=== PATIENT | female | born 1985 | race Caucasian/White ===

== ENCOUNTER 2019-08-15 15:38 | Emergency (ER) | payer BC, MEDICAID ==
[~2019-08-15] VITALS: Ht 165.1 cm; Wt 135.3 kg
[~2019-08-15 15:38] MED LIST: DULO20CA50 PO; ESTR2TAB PO; HYDR-4070 PO; OXYC-150 PO
[2019-08-15 15:57] VITALS: BP 187/110
[2019-08-15] MEDS ORDERED: CEPH250T PO (16:18)
[2019-08-15] MEDS ORDERED: TETanus/Pertussis (Acell)/Diphther VAC/PF (Tdap-Adult) 0.5ml syringe IMVAC ONE (16:20)
== END 2019-08-15 16:44 | disposition home or self-care (01) ==
LOC: ER 15:38
DX: L08.9 Local infection of the skin and subcutaneous tissue, unspecified (principal); M79.605 Pain in left leg; J45.909 Unspecified asthma, uncomplicated; F41.9 Anxiety disorder, unspecified; Z90.49 Acquired absence of other specified parts of digestive tract; Z90.710 Acquired absence of both cervix and uterus; Z72.89 Other problems related to lifestyle; Z88.5 Allergy status to narcotic agent; Z79.2 Long term (current) use of antibiotics; Z79.899 Other long term (current) drug therapy
CPT/HCPCS: 90471; 90715; 99283

== ENCOUNTER 2021-05-29 08:27 | Inpatient (IN) | payer BC, MEDICAID ==
[~2021-05-29] VITALS: Ht 165.1 cm; Wt 129.6 kg
[~2021-05-29 08:27] MED LIST changes: -ESTR2TAB PO; +ESTR2TAB50 PO
[2021-05-29] MEDS ORDERED: normal saline 1000ML IV soln IVB ONE (09:50)
[2021-05-29] MEDS ORDERED: pantoprazole 40MG/NS 100ML BAG 100 ML IV ONE ×2 (09:50→09:51)
[2021-05-29] MEDS ORDERED: ondansetron/PF 4mg/2ml inj IV ONE (09:50)
--- NOTE | 2021-05-29 10:20 | NUR ---
Patient ambulates to restroom without assistance; gait steady.
[2021-05-29 10:36] LABS: BASOPHILS % (AUTO) 0 % (0-1); EOSINOPHILS % (AUTO) 0.1 % (0-6); HEMOGLOBIN 14.2 g/dl (12.0-16.0); LYMPHOCYTES # (AUTO) 0.9 X10'3 (1.1-4.8); LYMPHOCYTES % (AUTO) 5.7 % (21-51); MEAN CORPUSCULAR HEMOGLOBIN 31.2 PG (27.0-31.0); MEAN CORPUSCULAR HGB CONC 33.9 g/dL (33.0-36.5); MEAN PLATELET VOLUME 7.3 FL (7.4-10.4); MONOCYTES # (AUTO) 0.6 X10'3 (0-0.9); MONOCYTES % (AUTO) 3.7 % (2-12); NEUTROPHILS # (AUTO) 14.2 X10'3 (1.8-7.7); NEUTROPHILS % (AUTO) 90.5 % (42-75); PLATELET COUNT 308 X10'3 (140-440); RED BLOOD COUNT 4.56 X10'6 (4.20-5.60); RED CELL DISTRIBUTION WIDTH 12.8 % (11.5-14.5); WHITE BLOOD COUNT 15.7 X10'3 (4.5-11.0)
[2021-05-29 10:44] LABS: ALANINE AMINOTRANSFERASE 112 U/L (12-78); ALBUMIN 3.8 G/DL (3.4-5.0); ALKALINE PHOSPHATASE 61 IU/L (46-116); ANION GAP 8 (8-16); ASPARTATE AMINO TRANSFERASE 69 U/L (10-37); BLOOD UREA NITROGEN 12 MG/DL (7-18); BUN/CREATININE RATIO 19.7 (6.6-38.0); CALCIUM 8.9 MG/DL (8.5-10.1); CHLORIDE 106 MMOL/L (99-107); CREATININE 0.61 MG/DL (0.40-0.90); GLUCOSE 102 MG/DL (70-104); LIPASE 66 U/L (73-393); POTASSIUM 4.3 MMOL/L (3.5-5.1); SODIUM 142 MMOL/L (135-145); TOTAL CARBON DIOXIDE 27.9 MMOL/L (24-32); TOTAL PROTEIN 7.8 G/DL (6.4-8.2); eGFR > 90 ML/MIN
[2021-05-29 10:59] LABS: CLARITY,URINE CLEAR (Clear); COLOR,URINE YELLOW (Yellow); GLUCOSE, URINE NEGATIVE (Neg); KETONES,URINE NEGATIVE (Neg); LEUKOCYTE ESTERASE ,URINE NEGATIVE (Neg); NITRITES, URINE NEGATIVE (Neg); OCCULT BLOOD,URINE NEGATIVE (Neg); PROTEIN,URINE NEGATIVE (Neg); UROBILINOGEN,URINE 0.2 E.U/dL (0.2-1.0)
[2021-05-29 11:11] LABS: UA COLLECTION TYPE NON-SPECIFIED
[2021-05-29] MEDS ORDERED: azithromycin/NS 500mg/250ml 250 ML IV ONE (11:50)
[2021-05-29] MEDS ORDERED: cefTRIAXone 1g/NS 100ml IVPB 100 ML IV ONE (11:50)
[2021-05-29] MEDS ORDERED: ESTR2TAB6 PO (12:50)
[2021-05-29] MEDS ORDERED: METO-384 PO (12:50)
[2021-05-29] MEDS ORDERED: DULO60CA65 PO (12:50)
[2021-05-29] MEDS ORDERED: METO-395 PO (12:50)
[2021-05-29] MEDS ORDERED: LISI20TA28 PO (12:50)
[2021-05-29] MEDS ORDERED: iohexol 350MG/ML 100ml bottle IV ONE (12:58)
[2021-05-29] MEDS ORDERED: acetaminophen 325mg tablet PO PRN ×2 (13:35→23:15)
[2021-05-29] MEDS ORDERED: magnesium hydroxide 30ml (MOM) UD suspension PO PRN (13:35)
[2021-05-29] MEDS ORDERED: potassium CL 10mEq/100ml bag 100 ML IV PRN (13:35)
[2021-05-29] MEDS ORDERED: magnesium 4gm in 100ml NS 100 ML IV PRN (13:35)
[2021-05-29] MEDS ORDERED: potassium Cl 20 mEq SR tablet PO PRN ×2 (13:35)
[2021-05-29] MEDS ORDERED: mag hydrox/Alum hydrox/simeth 30ml oral suspension PO PRN (13:35)
[2021-05-29] MEDS ORDERED: magnesium 2GM in 50ml NS 50 ML IV PRN (13:35)
[2021-05-29] MEDS ORDERED: magnesium Cl slow-release 64mg tablet PO PRN (13:35)
[2021-05-29] MEDS: normal saline 1000ml 1,000 ML IV SCH (14:01)
[2021-05-29 14:24] LABS: MAGNESIUM 1.7 MG/DL (1.5-2.4); POTASSIUM 4.3 MMOL/L (3.5-5.1)
--- NOTE | 2021-05-29 14:53 | NUR ---
Attempted to call report to TAURUS Stevens; unavailable.
--- NOTE | 2021-05-29 15:18 | NUR ---
Patient in room ED 14. I have received report from SHAHID CONDON and had the opportunity to ask questions and assume patient care.
[2021-05-29 15:55] VITALS: BP 144/88
--- NOTE | 2021-05-29 18:15 | NUR ---
Patient in room IVON 344. I have received report from Hilda CONDON and had the opportunity to ask questions and assume patient care.
--- NOTE | 2021-05-29 18:32 | NUR ---
Problems reprioritized. Patient report given, questions answered & plan of care reviewed with JALYN CONDON.
[2021-05-29] MEDS: ondansetron/PF 4mg/2ml inj IV PRN (18:54)
[2021-05-29 20:00] VITALS: BP 140/79
[2021-05-29] MEDS: K and/or MAG REPLACEMENT MC SCH (20:00)
[2021-05-29] MEDS: docusate sod 100mg capsule PO SCH (20:00)
--- NOTE | 2021-05-29 20:00 | NUR ---
1840: pt C/O N/V with 200 ml of emesis;prn zofran IV administered and was not effective.Pt had another episode on N/V and vomited 100 ml. notified and an order for IV Compazine 5 mg was obtained.Med order completed' awaiting pharmacy to verify. will continue to monitor.
[2021-05-29] MEDS: proCHLORperazine 10 MG/2 ml inj IV PRN (20:56)
[2021-05-29] MEDS ORDERED: morphine 2 MG/ML inj. syringe IV PRN (23:00)
[2021-05-29] MEDS ORDERED: enalaprilat dihydrate 2.5mg/2ml vial IV ONE (23:00)
[2021-05-29 23:15] VITALS: BP 172/92
[2021-05-29 23:18] VITALS: BP 163/88
[2021-05-30] VITALS (8 sets, daily range): BP systolic 104–213; BP diastolic 58–115
[2021-05-30] MEDS: normal saline 1000ml 1,000 ML IV SCH ×3 (05:06→23:29)
[2021-05-30] MEDS: proCHLORperazine 10 MG/2 ml inj IV PRN ×2 (05:24→21:15)
[2021-05-30 05:47] LABS: BASOPHILS % (AUTO) 0.2 % (0-1); EOSINOPHILS % (AUTO) 0.1 % (0-6); HEMATOCRIT 35.1 % (35.0-45.0); HEMOGLOBIN 12.2 g/dl (12.0-16.0); LYMPHOCYTES # (AUTO) 2.2 X10'3 (1.1-4.8); LYMPHOCYTES % (AUTO) 15.6 % (21-51); MEAN CORPUSCULAR HEMOGLOBIN 31.5 PG (27.0-31.0); MEAN CORPUSCULAR HGB CONC 34.8 g/dL (33.0-36.5); MEAN CORPUSCULAR VOLUME 90.7 FL (78-98); MEAN PLATELET VOLUME 7.6 FL (7.4-10.4); MONOCYTES # (AUTO) 0.5 X10'3 (0-0.9); MONOCYTES % (AUTO) 3.4 % (2-12); NEUTROPHILS # (AUTO) 11.6 X10'3 (1.8-7.7); NEUTROPHILS % (AUTO) 80.7 % (42-75); PLATELET COUNT 278 X10'3 (140-440); RED BLOOD COUNT 3.87 X10'6 (4.20-5.60); RED CELL DISTRIBUTION WIDTH 13.2 % (11.5-14.5); WHITE BLOOD COUNT 14.4 X10'3 (4.5-11.0)
[2021-05-30 05:52] LABS: ALBUMIN 3.2 G/DL (3.4-5.0); ANION GAP 8 (8-16); BLOOD UREA NITROGEN 6 MG/DL (7-18); BUN/CREATININE RATIO 10.7 (6.6-38.0); CALCIUM 8.6 MG/DL (8.5-10.1); CHLORIDE 103 MMOL/L (99-107); CREATININE 0.56 MG/DL (0.40-0.90); GLUCOSE 100 MG/DL (70-104); POTASSIUM 3.7 MMOL/L (3.5-5.1); SODIUM 138 MMOL/L (135-145); eGFR > 90 ML/MIN
[2021-05-30] MEDS: docusate sod 100mg capsule PO SCH ×2 (08:00→20:00)
[2021-05-30] MEDS: azithromycin 250mg tablet PO SCH (08:15)
[2021-05-30] MEDS: K and/or MAG REPLACEMENT MC SCH ×2 (08:15→20:00)
[2021-05-30] MEDS: cefTRIAXone 1g/NS 100ml IVPB 100 ML IV SCH (08:15)
[2021-05-30] MEDS: enoxaparin 40mg/0.4ml syringe SUBCUT SCH (08:16)
[2021-05-30] MEDS: HYDROcodone/acetaminophen 10/325mg tab PO PRN ×2 (13:46→23:28)
[2021-05-30] MEDS: metoprolol succinate 25mg (24-HOUR) SR. Tablet PO SCH (14:30)
[2021-05-30] MEDS: ondansetron/PF 4mg/2ml inj IV PRN ×2 (17:07→23:22)
[2021-05-31] VITALS (7 sets, daily range): BP systolic 112–194; BP diastolic 56–113
--- NOTE | 2021-05-31 | NUR ---
2350;Pt C/O pounding headache,BP elevated to 200/100,(RUE),HR 96 213/115,(LUE) HR 98.[place] 10/325 prn administered. paged and an order for vasotec 5 mg IV one time obtained and administered. Will continue to monitor.
[2021-05-31] MEDS ORDERED: enalaprilat dihydrate 2.5mg/2ml vial IV ONE (00:05)
--- NOTE | 2021-05-31 01:55 | NUR ---
On recheck BP was 174/91 HR 105 ,174 /101 (HR 124) Pt was also diaphoretic .BG checked and was 163 mg/dl.MD called and and order for Metoprolol 25 mg PO obtained and administered.Will recheck BP and monitor.
[2021-05-31] MEDS ORDERED: metoprolol tartrate 25mg tablet PO ONE (02:05)
[2021-05-31] MEDS ORDERED: cloNIDine 0.1 mg tablet PO ONE (04:05)
--- NOTE | 2021-05-31 04:40 | NUR ---
BP rechecked at 0334 ; 194/113 O2 sats dropped significantly to 55% on RA , 2 L supplemental O2 per NC with sats between 85 and 88%.MD called and an order for 0.2 mg Clonidine obtained and administered.O2 bumped to 4 L and now sating between 92- 94 %.EDUCATIONAL PARAPROFESSIONAL paged pt assessed , Chest x-ray order obtained and completed. 0425 Bp 151/93, pt still reporting headache and appears sweaty.using a wet cloth and encouraged to take slow deep breaths occasionally.
[2021-05-31] MEDS: estradiol 1mg tablet PO SCH ×2 (05:12→08:53)
--- NOTE | 2021-05-31 05:12 | NUR ---
Rapid Response called at 0410 A rapid response was called on this patientfor low sats; On arrival to bedside, the patient was awake/alert; denies SOB or chest pain;sat 91% on NC 4L; BP 170/104, HR 103; pt in no resp distress, only c/o H/A; skin warm, slightly sweaty on forehead; breath sounds clear but decreased anteriorly. Interventions: [Update given to Dr. Salazar, only order for CXR, no ABG at this time unless pt in resp distress, meds already ordered for BP] Rapid response outcome: pt to remain in room at this time; follow up BP 152/91, HR 99; sat 92% on 4L NC.
[2021-05-31] MEDS: normal saline 1000ml 1,000 ML IV SCH ×3 (05:35→19:18)
[2021-05-31 05:39] LABS: BASOPHILS % (AUTO) 0 % (0-1); EOSINOPHILS % (AUTO) 0 % (0-6); HEMATOCRIT 37.1 % (35.0-45.0); HEMOGLOBIN 12.8 g/dl (12.0-16.0); LYMPHOCYTES # (AUTO) 0.8 X10'3 (1.1-4.8); LYMPHOCYTES % (AUTO) 5.4 % (21-51); MEAN CORPUSCULAR HGB CONC 34.4 g/dL (33.0-36.5); MEAN CORPUSCULAR VOLUME 90.1 FL (78-98); MEAN PLATELET VOLUME 7.4 FL (7.4-10.4); MONOCYTES # (AUTO) 0.3 X10'3 (0-0.9); MONOCYTES % (AUTO) 1.9 % (2-12); NEUTROPHILS # (AUTO) 13.6 X10'3 (1.8-7.7); NEUTROPHILS % (AUTO) 92.7 % (42-75); PLATELET COUNT 286 X10'3 (140-440); RED BLOOD COUNT 4.12 X10'6 (4.20-5.60); RED CELL DISTRIBUTION WIDTH 12.9 % (11.5-14.5); WHITE BLOOD COUNT 14.7 X10'3 (4.5-11.0)
[2021-05-31 05:46] LABS: ALBUMIN 3.1 G/DL (3.4-5.0); ANION GAP 9 (8-16); BLOOD UREA NITROGEN 4 MG/DL (7-18); BUN/CREATININE RATIO 6.3 (6.6-38.0); CALCIUM 8.7 MG/DL (8.5-10.1); CHLORIDE 99 MMOL/L (99-107); CREATININE 0.64 MG/DL (0.40-0.90); GLUCOSE 134 MG/DL (70-104); POTASSIUM 4.2 MMOL/L (3.5-5.1); SODIUM 137 MMOL/L (135-145); TOTAL CARBON DIOXIDE 28.6 MMOL/L (24-32); eGFR > 90 ML/MIN
--- NOTE | 2021-05-31 07:27 | NUR ---
Problems reprioritized. Patient report given, questions answered & plan of care reviewed with Michela RN.
[2021-05-31] MEDS: cefTRIAXone 1g/NS 100ml IVPB 100 ML IV SCH ×2 (08:00→08:35)
[2021-05-31] MEDS: K and/or MAG REPLACEMENT MC SCH ×2 (08:00→20:00)
[2021-05-31] MEDS: HYDROcodone/acetaminophen 10/325mg tab PO PRN ×3 (08:36→22:13)
[2021-05-31] MEDS: duloxetine 30mg CAPSULE.DR PO SCH (08:37)
[2021-05-31] MEDS: metoprolol succinate 25mg (24-HOUR) SR. Tablet PO SCH (08:37)
[2021-05-31] MEDS: enoxaparin 40mg/0.4ml syringe SUBCUT SCH (08:38)
[2021-05-31] MEDS: azithromycin 250mg tablet PO SCH (08:52)
[2021-05-31] MEDS: docusate sod 100mg capsule PO SCH ×2 (08:56→19:45)
[2021-05-31] MEDS: lisinopril 20mg tablet PO SCH (08:56)
[2021-05-31] MEDS ORDERED: cefTRIAXone 1g/NS 100ml IVPB 100 ML IV ONE (09:55)
[2021-05-31 10:55] LABS: HIV ANTIBODY 1&2 RAPID NON-REACTIVE (Neg)
[2021-05-31] MEDS: proCHLORperazine 10 MG/2 ml inj IV PRN (13:03)
--- NOTE | 2021-05-31 14:31 | NUR ---
PT EATING AND DRINKING WELL, pt REQUESTING TO STOP IV FLUIDS. md notified, awaiting orders.
--- NOTE | 2021-05-31 16:36 | NUR ---
Texted/Page regarding Pt and mother requesting for transfer to [facility] in [place]. Mother states she has the xrays/CD from records requested. Awaiting additional orders
--- NOTE | 2021-05-31 18:49 | NUR ---
Patient in room IVON 341. I have received report from TAURUS Abernathy and had the opportunity to ask questions and assume patient care.
[2021-06-01 00:01] VITALS: BP 118/64
[2021-06-01] MEDS: vancomycin/NS 1 GM ADD-VANTAGE 250 ML IV SCH ×3 (03:48→19:41)
[2021-06-01] MEDS: ondansetron/PF 4mg/2ml inj IV PRN ×2 (04:07→18:28)
--- NOTE | 2021-06-01 06:26 | NUR ---
Problems reprioritized. Patient report given, questions answered & plan of care reviewed with TAURUS Howard.
[2021-06-01 06:31] LABS: BASOPHILS % (AUTO) 0.3 % (0-1); EOSINOPHILS # (AUTO) 0.2 X10'3 (0-0.9); HEMATOCRIT 33.3 % (35.0-45.0); HEMOGLOBIN 11.3 g/dl (12.0-16.0); LYMPHOCYTES % (AUTO) 20.6 % (21-51); MEAN CORPUSCULAR HEMOGLOBIN 31.5 PG (27.0-31.0); MEAN CORPUSCULAR HGB CONC 34.1 g/dL (33.0-36.5); MEAN CORPUSCULAR VOLUME 92.3 FL (78-98); MEAN PLATELET VOLUME 7.6 FL (7.4-10.4); MONOCYTES # (AUTO) 0.5 X10'3 (0-0.9); MONOCYTES % (AUTO) 5.5 % (2-12); NEUTROPHILS # (AUTO) 6.9 X10'3 (1.8-7.7); NEUTROPHILS % (AUTO) 71.6 % (42-75); PLATELET COUNT 248 X10'3 (140-440); RED BLOOD COUNT 3.61 X10'6 (4.20-5.60); RED CELL DISTRIBUTION WIDTH 12.9 % (11.5-14.5); WHITE BLOOD COUNT 9.6 X10'3 (4.5-11.0)
[2021-06-01 06:40] LABS: ALBUMIN 2.8 G/DL (3.4-5.0); ANION GAP 5 (8-16); BLOOD UREA NITROGEN 7 MG/DL (7-18); BUN/CREATININE RATIO 12.7 (6.6-38.0); CALCIUM 8.4 MG/DL (8.5-10.1); CHLORIDE 103 MMOL/L (99-107); CREATININE 0.55 MG/DL (0.40-0.90); GLUCOSE 90 MG/DL (70-104); POTASSIUM 3.3 MMOL/L (3.5-5.1); SODIUM 139 MMOL/L (135-145); TOTAL CARBON DIOXIDE 31.4 MMOL/L (24-32); eGFR > 90 ML/MIN
[2021-06-01 08:00] VITALS: BP 121/73
[2021-06-01] MEDS: K and/or MAG REPLACEMENT MC SCH ×3 (08:00→20:00)
[2021-06-01] MEDS: duloxetine 30mg CAPSULE.DR PO SCH (08:38)
[2021-06-01] MEDS: azithromycin 250mg tablet PO SCH (08:39)
[2021-06-01] MEDS: docusate sod 100mg capsule PO SCH ×2 (08:39→19:41)
[2021-06-01] MEDS: metoprolol succinate 25mg (24-HOUR) SR. Tablet PO SCH (08:39)
[2021-06-01] MEDS: lisinopril 20mg tablet PO SCH (08:40)
[2021-06-01] MEDS: HYDROcodone/acetaminophen 10/325mg tab PO PRN (08:40)
[2021-06-01] MEDS: CefTRIAXone 2gm/NS 100ml IVPB 100 ML IV SCH (08:41)
[2021-06-01] MEDS: enoxaparin 40mg/0.4ml syringe SUBCUT SCH (08:41)
[2021-06-01] MEDS: normal saline 1000ml 1,000 ML IV SCH (11:35)
--- NOTE | 2021-06-01 16:52 | NUR ---
PAGER ID: [phone] MESSAGE: 341. Patient drinking a lot of fluids, still need IVF? Sputum cultures resulted. Anita CONDON [id number]
--- NOTE | 2021-06-01 17:42 | NUR ---
PAGER ID: [phone] MESSAGE: 341. Can I reorder potassium replacement? Anita CONDON [id number]
[2021-06-01] MEDS ORDERED: potassium CL 10mEq/100ml bag 100 ML IV PRN (17:50)
[2021-06-01] MEDS ORDERED: magnesium Cl slow-release 64mg tablet PO PRN (17:50)
[2021-06-01] MEDS ORDERED: magnesium 4gm in 100ml NS 100 ML IV PRN (17:50)
[2021-06-01] MEDS ORDERED: magnesium 2GM in 50ml NS 50 ML IV PRN (17:50)
[2021-06-01] MEDS ORDERED: potassium Cl 20 mEq SR tablet PO PRN (17:50)
--- NOTE | 2021-06-01 18:06 | NUR ---
Problems reprioritized. Patient report given, questions answered & plan of care reviewed with Marina CONDON.
--- NOTE | 2021-06-01 18:30 | NUR ---
Patient in room IVON 341. I have received report from TAURUS Howard and had the opportunity to ask questions and assume patient care.
[2021-06-01 19:40] LABS: POTASSIUM 3.1 MMOL/L (3.5-5.1)
[2021-06-01] MEDS: potassium Cl 20 mEq SR tablet PO PRN ×2 (19:55→23:50)
[2021-06-01 20:00] VITALS: BP 138/75
[2021-06-02 00:02] VITALS: BP 151/72
[2021-06-02] MEDS ORDERED: VANCOMYCIN LEVEL IV ONE (03:30)
[2021-06-02] MEDS: vancomycin/NS 1 GM ADD-VANTAGE 250 ML IV SCH (04:41)
[2021-06-02] MEDS: potassium Cl 20 mEq SR tablet PO PRN ×3 (04:42→21:29)
[2021-06-02 05:23] LABS: BASOPHILS # (AUTO) 0.1 X10'3 (0-0.2); BASOPHILS % (AUTO) 0.9 % (0-1); EOSINOPHILS # (AUTO) 0.2 X10'3 (0-0.9); EOSINOPHILS % (AUTO) 2.6 % (0-6); HEMATOCRIT 37.8 % (35.0-45.0); LYMPHOCYTES # (AUTO) 1.3 X10'3 (1.1-4.8); MEAN CORPUSCULAR HEMOGLOBIN 31.2 PG (27.0-31.0); MEAN CORPUSCULAR HGB CONC 34.5 g/dL (33.0-36.5); MEAN CORPUSCULAR VOLUME 90.3 FL (78-98); MEAN PLATELET VOLUME 7.2 FL (7.4-10.4); MONOCYTES # (AUTO) 0.5 X10'3 (0-0.9); MONOCYTES % (AUTO) 6.4 % (2-12); NEUTROPHILS % (AUTO) 71.1 % (42-75); PLATELET COUNT 319 X10'3 (140-440); RED BLOOD COUNT 4.18 X10'6 (4.20-5.60); RED CELL DISTRIBUTION WIDTH 12.9 % (11.5-14.5); WHITE BLOOD COUNT 7.1 X10'3 (4.5-11.0)
[2021-06-02 05:32] LABS: ALBUMIN 3.3 G/DL (3.4-5.0); ANION GAP 11 (8-16); BLOOD UREA NITROGEN 4 MG/DL (7-18); BUN/CREATININE RATIO 6.8 (6.6-38.0); CALCIUM 9.1 MG/DL (8.5-10.1); CHLORIDE 99 MMOL/L (99-107); CREATININE 0.59 MG/DL (0.40-0.90); GLUCOSE 82 MG/DL (70-104); POTASSIUM 3.4 MMOL/L (3.5-5.1); SODIUM 141 MMOL/L (135-145); TOTAL CARBON DIOXIDE 30.6 MMOL/L (24-32); VANCOMYCIN,TROUGH 8.3 UG/ML (6.0-14.0); eGFR > 90 ML/MIN
[2021-06-02] MEDS: ondansetron/PF 4mg/2ml inj IV PRN (05:58)
--- NOTE | 2021-06-02 06:40 | NUR ---
Problems reprioritized. Patient report given, questions answered & plan of care reviewed with [].
--- NOTE | 2021-06-02 06:42 | NUR ---
Problems reprioritized. Patient report given, questions answered & plan of care reviewed with TAURUS Aguilera+.
[2021-06-02 07:00] VITALS: BP 161/86
[2021-06-02] MEDS: K and/or MAG REPLACEMENT MC SCH ×4 (08:00→20:00)
[2021-06-02] MEDS: CefTRIAXone 2gm/NS 100ml IVPB 100 ML IV SCH (08:42)
[2021-06-02] MEDS: estradiol 1mg tablet PO SCH (08:44)
[2021-06-02] MEDS: metoprolol succinate 25mg (24-HOUR) SR. Tablet PO SCH (08:45)
[2021-06-02] MEDS: azithromycin 250mg tablet PO SCH (08:46)
[2021-06-02] MEDS: lisinopril 20mg tablet PO SCH (08:46)
[2021-06-02] MEDS: duloxetine 30mg CAPSULE.DR PO SCH (08:46)
[2021-06-02] MEDS: docusate sod 100mg capsule PO SCH ×2 (08:46→21:30)
[2021-06-02] MEDS: enoxaparin 40mg/0.4ml syringe SUBCUT SCH (08:47)
[2021-06-02 11:00] VITALS: BP 147/100
[2021-06-02] MEDS: VANCOmycin 1250MG/NS 250ml Bag 250 ML IV SCH ×2 (14:07→21:31)
--- NOTE | 2021-06-02 18:15 | NUR ---
DR PINK WENT IN TO SEE PT AND TALK WITH HER ON PLAN OF CARE PER PT AND MOM'S REQUEST. MOM GAVE AN ATTITUDE TOLD HER TO WQAIT TILL THEY WERE READY. CAME OUT INFORMED THE STAFF AND DAYSHIFT RN AND SHE WENT IN WITH THE MD. ORDERS RECIEVED ON THE PT AND AWAITING CULTURE AND SENSITIVITY RESULTS ON LABS.
--- NOTE | 2021-06-02 18:39 | NUR ---
Patient in room IV[facility] 341. I have received report from TAURUS HUYNH and had the opportunity to ask questions and assume patient care. Addendum: 06/02/21 at 1840 by Olivia Johnston RN Amended: Links added.
[2021-06-02] MEDS ORDERED: normal saline 1000ml 1,000 ML IV SCH (18:40)
[2021-06-02 20:00] VITALS: BP 134/82
[2021-06-02] MEDS: guaiFENesin ER 600mg tablet PO SCH (21:31)
[2021-06-03] VITALS: BP 147/77
[2021-06-03] MEDS: VANCOmycin 1250MG/NS 250ml Bag 250 ML IV SCH (05:07)
[2021-06-03 07:00] VITALS: BP 179/89
--- NOTE | 2021-06-03 07:03 | NUR ---
Problems reprioritized. Patient report given, questions answered & plan of care reviewed with TAURUS BRADY. Addendum: 06/03/21 at 0704 by Olivia Johnston RN Amended: Links added.
--- NOTE | 2021-06-03 07:09 | NUR ---
Patient in room IVON 341. I have received report from LUIS MIGUEL CONDON and had the opportunity to ask questions and assume patient care.
[2021-06-03] MEDS: estradiol 1mg tablet PO SCH (07:47)
[2021-06-03] MEDS: azithromycin 250mg tablet PO SCH (07:48)
[2021-06-03] MEDS: metoprolol succinate 25mg (24-HOUR) SR. Tablet PO SCH (07:48)
[2021-06-03] MEDS: enoxaparin 40mg/0.4ml syringe SUBCUT SCH (07:48)
[2021-06-03 07:49] VITALS: BP_SYST 195
[2021-06-03] MEDS: lisinopril 20mg tablet PO SCH (07:49)
[2021-06-03] MEDS: duloxetine 30mg CAPSULE.DR PO SCH (07:49)
[2021-06-03] MEDS: CefTRIAXone 2gm/NS 100ml IVPB 100 ML IV SCH (07:50)
[2021-06-03] MEDS: guaiFENesin ER 600mg tablet PO SCH (07:50)
[2021-06-03] MEDS: docusate sod 100mg capsule PO SCH (07:52)
[2021-06-03 08:19] LABS: BASOPHILS % (AUTO) 0.3 % (0-1); EOSINOPHILS # (AUTO) 0.2 X10'3 (0-0.9); EOSINOPHILS % (AUTO) 2.8 % (0-6); HEMATOCRIT 38.9 % (35.0-45.0); HEMOGLOBIN 13.3 g/dl (12.0-16.0); LYMPHOCYTES # (AUTO) 1.4 X10'3 (1.1-4.8); LYMPHOCYTES % (AUTO) 16.1 % (21-51); MEAN CORPUSCULAR HEMOGLOBIN 30.9 PG (27.0-31.0); MEAN CORPUSCULAR HGB CONC 34.2 g/dL (33.0-36.5); MEAN CORPUSCULAR VOLUME 90.4 FL (78-98); MEAN PLATELET VOLUME 7.3 FL (7.4-10.4); MONOCYTES # (AUTO) 0.5 X10'3 (0-0.9); MONOCYTES % (AUTO) 6.3 % (2-12); NEUTROPHILS # (AUTO) 6.4 X10'3 (1.8-7.7); NEUTROPHILS % (AUTO) 74.5 % (42-75); PLATELET COUNT 344 X10'3 (140-440); RED CELL DISTRIBUTION WIDTH 12.8 % (11.5-14.5); WHITE BLOOD COUNT 8.6 X10'3 (4.5-11.0)
[2021-06-03 08:33] LABS: ALBUMIN 3.2 G/DL (3.4-5.0); ANION GAP 7 (8-16); BLOOD UREA NITROGEN 5 MG/DL (7-18); BUN/CREATININE RATIO 9.4 (6.6-38.0); CALCIUM 8.9 MG/DL (8.5-10.1); CHLORIDE 102 MMOL/L (99-107); CREATININE 0.53 MG/DL (0.40-0.90); GLUCOSE 98 MG/DL (70-104); MAGNESIUM 2.1 MG/DL (1.5-2.4); POTASSIUM 3.4 MMOL/L (3.5-5.1); SODIUM 139 MMOL/L (135-145); TOTAL CARBON DIOXIDE 29.6 MMOL/L (24-32); eGFR > 90 ML/MIN
--- NOTE | 2021-06-03 08:42 | NUR ---
Initial: Pt admitted w/ hemoptysis secondary to PNA per EMR. Pt noted to have had rapid response on 05/30. Currently on Regular diet w/ low PO intake, avg 35% x 12 meals not meeting needs. Pt could benefit from Ensure Enlive BID to help meet nutrient needs. LBM 06/02 receiving routine and PRN bowel care. Will continue to monitor and make recommendations as appropriate. Recs: 1. Continue Regular diet as tolerated 2. Ensure Enlive BIDBD; pending MD verification 3. Bowel care per rx 4. Scaled wts Addendum: 06/03/21 at [address] Amended: Links added.
[2021-06-03] MEDS ORDERED: LEVO500T90 PO (09:21)
[2021-06-03] MEDS ORDERED: ALBU2.5V7 INH (10:53)
--- NOTE | 2021-06-03 11:06 | NUR ---
PATIENTS B/P 195/106 given b/p meds. retaken 169/96 DR West aware. patient is for discharge . All Dc instructions given tp patient inc taking a log of her B/P to take to her physician to see if B/P meds needs reassessing. patient awaiting ride
[2021-06-03] MEDS ORDERED: VANCOMYCIN LEVEL IV ONE (11:30)
[2021-06-03] MEDS ORDERED: PANT-47 PO (11:33)
--- NOTE | 2021-06-03 11:43 | NUR ---
patient DC home via private car to home with family member in stable condition. [id number]
[2021-06-03] MEDS ORDERED: lactose-reduced food (Ensure Enlive) - 237ml bottle PO SCH (17:30)
== END 2021-06-03 11:25 | disposition home or self-care (01) | DRG 139 ==
LOC: ER 08:28 → ED HOLD 13:37 → SUR 3N 13:50 → EDBEDREQ 14:27 → SUR 3N 05-31 05:00
PROVIDERS: ADMIT Family Medicine; ATTEND Family Medicine
PROC: B32T1ZZ Computerized Tomography (CT Scan) of Left Pulmonary Artery using Low Osmolar Contrast (ICD-10-PCS; principal; 2021-05-29)
PROC: B3201ZZ Computerized Tomography (CT Scan) of Thoracic Aorta using Low Osmolar Contrast (ICD-10-PCS; 2021-05-29)
PROC: B32S1ZZ Computerized Tomography (CT Scan) of Right Pulmonary Artery using Low Osmolar Contrast (ICD-10-PCS; 2021-05-29)
DX: J18.9 Pneumonia, unspecified organism (principal); J96.01 Acute respiratory failure with hypoxia; R78.81 Bacteremia; K92.0 Hematemesis; R04.2 Hemoptysis; E66.01 Morbid (severe) obesity due to excess calories; G89.29 Other chronic pain; M54.9 Dorsalgia, unspecified; F41.9 Anxiety disorder, unspecified; F32.A Depression, unspecified; I10 Essential (primary) hypertension; J45.909 Unspecified asthma, uncomplicated; Z20.822 Contact with and (suspected) exposure to COVID-19; Z86.16 Personal history of COVID-19; Z87.01 Personal history of pneumonia (recurrent); Z68.42 Body mass index [BMI] 45.0-49.9, adult; Z90.710 Acquired absence of both cervix and uterus; Z88.5 Allergy status to narcotic agent; Z90.49 Acquired absence of other specified parts of digestive tract
CPT/HCPCS: 36415; 71045; 71046; 71275; 80048; 80053; 80202; 81003; 82948; 83605; 83690; 83735; 84132; 84145; 85025; 85610; 86703; 87040; 87070; 87077; 87081; 87635; 94668; 94760; 96365; 96367; 96375; 99285; C9113; G0378; J0456; J0696; J0780; J1650; J2405; J3370; J3490; J7030; Q9967

== ENCOUNTER 2022-01-14 12:40 | Emergency (ER) | payer MEDICAID ==
[~2022-01-14] VITALS: Ht 165.1 cm; Wt 128.0 kg
[~2022-01-14 12:40] MED LIST changes: +ALBU2.5V7 INH; -DULO20CA50 PO; +DULO60CA65 PO; -ESTR2TAB50 PO; +ESTR2TAB6 PO; -HYDR-4070 PO; +LISI20TA28 PO; +METO-395 PO; -OXYC-150 PO; +PANT-47 PO
[2022-01-14 13:26] LABS: BASOPHILS # (AUTO) 0.1 X10'3 (0-0.2); BASOPHILS % (AUTO) 0.7 % (0-1); EOSINOPHILS # (AUTO) 0.1 X10'3 (0-0.9); HEMATOCRIT 37.9 % (35.0-45.0); HEMOGLOBIN 13.2 g/dl (12.0-16.0); LYMPHOCYTES % (AUTO) 33.2 % (21-51); MEAN CORPUSCULAR HEMOGLOBIN 31.8 PG (27.0-31.0); MEAN CORPUSCULAR HGB CONC 34.8 g/dL (33.0-36.5); MEAN CORPUSCULAR VOLUME 91.4 FL (78-98); MEAN PLATELET VOLUME 7.4 FL (7.4-10.4); MONOCYTES # (AUTO) 0.5 X10'3 (0-0.9); MONOCYTES % (AUTO) 5.3 % (2-12); NEUTROPHILS # (AUTO) 5.4 X10'3 (1.8-7.7); NEUTROPHILS % (AUTO) 59.8 % (42-75); PLATELET COUNT 292 X10'3 (140-440); RED BLOOD COUNT 4.14 X10'6 (4.20-5.60); RED CELL DISTRIBUTION WIDTH 12.8 % (11.5-14.5)
[2022-01-14 13:33] LABS: ALANINE AMINOTRANSFERASE 30 U/L (12-78); ALBUMIN 3.6 G/DL (3.4-5.0); ALKALINE PHOSPHATASE 60 IU/L (46-116); ANION GAP 7 (8-16); ASPARTATE AMINO TRANSFERASE 12 U/L (10-37); BILIRUBIN,TOTAL 0.6 MG/DL (0.1-1.0); BLOOD UREA NITROGEN 14 MG/DL (7-18); BUN/CREATININE RATIO 19.4 (6.6-38.0); CALCIUM 9.1 MG/DL (8.5-10.1); CHLORIDE 103 MMOL/L (99-107); CREATININE 0.72 MG/DL (0.40-0.90); GLUCOSE 111 MG/DL (70-104); LIPASE 176 U/L (73-393); POTASSIUM 3.6 MMOL/L (3.5-5.1); SODIUM 138 MMOL/L (135-145); TOTAL CARBON DIOXIDE 28.2 MMOL/L (24-32); TOTAL PROTEIN 7.3 G/DL (6.4-8.2); eGFR > 90 ML/MIN
[2022-01-14 13:45] LABS: CLARITY,URINE CLEAR (Clear); COLOR,URINE YELLOW (Yellow); GLUCOSE, URINE NEGATIVE (Neg); KETONES,URINE TRACE mg/dl (Neg); LEUKOCYTE ESTERASE ,URINE NEGATIVE (Neg); NITRITES, URINE NEGATIVE (Neg); OCCULT BLOOD,URINE NEGATIVE (Neg); PH,URINE 6.5 (4.8-8.0); PROTEIN,URINE NEGATIVE (Neg); UROBILINOGEN,URINE 0.2 E.U/dL (0.2-1.0)
[2022-01-14 13:47] VITALS: BP 139/85
[2022-01-14 13:47] LABS: URINE HCG NEGATIVE (NEG)
[2022-01-14 13:50] LABS: UA COLLECTION TYPE CLN CATCH MIDSTREAM
[2022-01-14] MEDS ORDERED: ketorolac trometh. 30mg/ml inj. IV ONE (14:10)
[2022-01-14] MEDS ORDERED: normal saline 1000ML IV soln IVB ONE (14:10)
[2022-01-14] MEDS ORDERED: ondansetron/PF 4mg/2ml inj IV ONE (14:10)
[2022-01-14] MEDS ORDERED: ONDA4TAB12 PO (14:59)
== END 2022-01-14 15:17 | disposition home or self-care (01) ==
LOC: ER 12:40
DX: R10.31 Right lower quadrant pain (principal); J45.909 Unspecified asthma, uncomplicated; Z88.5 Allergy status to narcotic agent; Z90.49 Acquired absence of other specified parts of digestive tract; Z98.890 Other specified postprocedural states; Z90.710 Acquired absence of both cervix and uterus
CPT/HCPCS: 36415; 74176; 80053; 81003; 81025; 83690; 85025; 96374; 96375; 99284; J1885; J2405; J7030

== ENCOUNTER 2022-10-04 05:36 | Day surgery (SDC) | payer MEDICAID ==
[2022-09-30 11:14] LABS: BASOPHILS % (AUTO) 0.7 % (0-1); EOSINOPHILS # (AUTO) 0.2 X10'3 (0-0.9); EOSINOPHILS % (AUTO) 3.6 % (0-6); LYMPHOCYTES # (AUTO) 1.9 X10'3 (1.1-4.8); LYMPHOCYTES % (AUTO) 31.3 % (21-51); MEAN CORPUSCULAR HGB CONC 34.5 g/dL (33.0-36.5); MEAN CORPUSCULAR VOLUME 92.6 FL (78-98); MEAN PLATELET VOLUME 7.5 FL (7.4-10.4); MONOCYTES # (AUTO) 0.3 X10'3 (0-0.9); MONOCYTES % (AUTO) 5.1 % (2-12); NEUTROPHILS # (AUTO) 3.7 X10'3 (1.8-7.7); NEUTROPHILS % (AUTO) 59.3 % (42-75); PRE OP HEMATOCRIT 39.3 % (35.0-45.0); PRE OP HEMOGLOBIN 13.6 g/dL (12.0-16.0); PRE OP PLATELET COUNT 282 X10'3 (140-440); RED BLOOD COUNT 4.24 X10'6 (4.20-5.60); RED CELL DISTRIBUTION WIDTH 12.9 % (11.5-14.5)
[2022-09-30 11:33] LABS: ALBUMIN 3.5 G/DL (3.4-5.0); ALKALINE PHOSPHATASE 67 IU/L (46-116); BLOOD UREA NITROGEN 10 MG/DL (7-18); BUN/CREATININE RATIO 15.6 (10.0-20.0); CALCIUM 8.9 MG/DL (8.5-10.1); CHLORIDE 104 MMOL/L (99-107); CREATININE 0.64 MG/DL (0.40-0.90); PRE OP ALT 55 U/L (30-65); PRE OP ANION GAP 9 (8-16); PRE OP AST 40 U/L (10-37); PRE OP BILIRUB, TOTAL 0.6 MG/DL (0.0-1.0); PRE OP GLUCOSE 105 MG/DL (70-104); PRE OP POTASSIUM 4.5 MMOL/L (3.4-5.1); PRE OP SODIUM 141 MMOL/L (135-145); TOTAL CARBON DIOXIDE 27.7 MMOL/L (24-32); eGFR > 90 ML/MIN
[2022-10-04] VITALS (7 sets, daily range): BP systolic 121–156; BP diastolic 60–89; PULSE 65–71; RESP 14–16; TEMP 97.1; O2SAT 98–100
[~2022-10-04] VITALS: Ht 165.1 cm; Wt 122.3 kg
[~2022-10-04 05:36] MED LIST changes: -ALBU2.5V7 INH; +CETI-90 PO; +DOCUMENT DATE & TIME OF BETA-BLOCKER PO ONE; +GABA300C PO; +HYDR-3973 PO; -LISI20TA28 PO; +LISI30TA4 PO; -PANT-47 PO; +ceFAZolin inj. 3,000 MG in normal saline 100ml IV soln 100 ML IV ONE; +famotidine 20mg tablet PO ONE; +ringers solution, lacted 1,000 ML IV SCH
[2022-10-04] MEDS ORDERED: BUPIVAcaine/PF 2.5 mg/ml (0.25%) 30ml vial ONE (06:47)
[2022-10-04] MEDS ORDERED: LIDOcaine 0.5% (5mg/ml) 50ml vial ONE (07:19)
[2022-10-04] MEDS ORDERED: proCHLORperazine 10 MG/2 ml inj IV PRN (07:30)
[2022-10-04] MEDS ORDERED: ringers solution, lacted 1,000 ML IV SCH (07:30)
[2022-10-04] MEDS ORDERED: meperidine/PF 25mg/ml syringe IV PRN ×3 (07:30)
[2022-10-04] MEDS ORDERED: ondansetron/PF 4mg/2ml inj IV PRN (07:30)
[2022-10-04] MEDS ORDERED: midazolam 1 mg/ML 2ml injection ONE (08:23)
[2022-10-04] MEDS ORDERED: fentaNYL/PF 50MCG/1 ML 2ML syringe ONE (08:23)
[2022-10-04] MEDS ORDERED: propofol inj 20 ML IV ONE (08:48)
--- NOTE | 2022-10-04 08:55 | NUR ---
Received from OR via [facility], accompanied by Anesthesiologist LEE and report given by Anesthesiolgist. PT AWAKE AND ALERT, OXYGENATING WELL ON ROOM AIR. DENIES ANY PAIN OR NAUSEA. HAD JOHNNY BLOCK TO RUE. ABLE TO MOVE FINGERS, [facility] CHECKS WNL. VSS. BULKY DSG TO R HAND CDI.
--- NOTE | 2022-10-04 09:25 | NUR ---
VSS. NO PAIN. TOLERATING PO FLUIDS WELL. DC INSTRUCTIONS EXPLAINED TO PT, SHE VERBALIZED UNDERSTANDING. PIV DCD CATH INTACT. DCD IN STABLE CONDITION, TAKEN TO CAR VIA WC.
== END 2022-10-04 09:25 | disposition home or self-care (01) ==
LOC: PAS 05:36
PROVIDERS: ATTEND Orthopaedic Surgery Hand Surgery
DX: G56.01 Carpal tunnel syndrome, right upper limb (principal); M65.331 Trigger finger, right middle finger; E66.9 Obesity, unspecified; Z68.41 Body mass index [BMI] 40.0-44.9, adult; I10 Essential (primary) hypertension; J45.909 Unspecified asthma, uncomplicated; F32.A Depression, unspecified; F41.9 Anxiety disorder, unspecified; G89.29 Other chronic pain; Z98.890 Other specified postprocedural states; Z90.49 Acquired absence of other specified parts of digestive tract; Z90.710 Acquired absence of both cervix and uterus; Z88.5 Allergy status to narcotic agent; Z79.899 Other long term (current) drug therapy
CPT/HCPCS: 26055; 29848; 36415; 80053; 82948; 85025; 93005; J0690; J2250; J2704; J3010; J3490; J7030; J7120; Z7506; Z7512; A4215; A7000